=== PATIENT | male | born 1945 | race Caucasian/White ===

== ENCOUNTER 2016-12-08 06:09 | Inpatient (IN) ==
[2016-12-08] MEDS ORDERED: Dexamethasone 4 MG/ML VIAL ONE (06:19)
[2016-12-08] MEDS ORDERED: Lidocaine -MPF 4% 5 ML AMPUL ONE (06:19)
[2016-12-08] MEDS ORDERED: *HR* Succinylcholine 200 MG/10 ML VIAL IVP ONE (06:19)
[2016-12-08] MEDS ORDERED: Ondansetron 4 MG/2 ML VIAL ONE (06:19)
[2016-12-08] MEDS ORDERED: Lidocaine -MPF 2% 2 ML VIAL ONE ×2 (06:19→07:28)
[2016-12-08] MEDS ORDERED: *HR* Midazolam HCl 2 MG/2 ML VIAL ONE (06:20)
[2016-12-08] MEDS ORDERED: *HR* FentaNYL (PF) 100 MCG/2 ML VIAL ONE ×2 (06:20→08:03)
[2016-12-08] MEDS ORDERED: *HR* Propofol 200 MG/20 ML VIAL IVP ONE (06:20)
[2016-12-08] MEDS ORDERED: Vancomycin 1,750 MG in D5% in Water 500 ML IVPB ONE ×2 (06:29→19:00)
[2016-12-08] MEDS ORDERED: CeFAZolin Pre 2,000 MG/100 ML 2,000 MG/100 ML BAG IVPB ONE (06:29)
[2016-12-08] MEDS ORDERED: Lidocaine -MPF 1% 2 ML VIAL ID ONE (06:29)
[2016-12-08] MEDS ORDERED: Ringers Solution, Lactated 1,000 ML IVC SCH (06:30)
[2016-12-08] MEDS ORDERED: *HR* Phenylephrine 10 MG/ML VIAL ONE (06:31)
[2016-12-08] MEDS ORDERED: Heparin 1,000 UNITS/500 mL NS 500 ML ONE ×2 (07:04→07:21)
--- NOTE | 2016-12-08 07:17 | Anesthesia Evaluation PreOp ---
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: Other (REM sleep disorder) Other Medical History: Other (BMI 37) Anesthesia History: No Prior Anesthetic Complications, Past Anesthesia ( tonsillectomy, cardiac cath) Alcohol Use: none Drug use: none Medications and Allergies Atenolol [Tenormin] 50 mg PO BID 04/11/16 [History] amLODIPine [Norvasc] 10 mg PO DAILY #30 tablet 04/11/16 [Rx] cloNIDine HCl [CloNIDine HCl] 0.1 mg PO BID 04/11/16 [History] clonazePAM [Klonopin] 1 mg PO HS 04/11/16 [History] hydroCHLOROthiazide [Hydrochlorothiazide] 25 mg PO DAILY #30 tablet 04/11/16 [Rx ] Acetaminophen [Tylenol] 1,000 mg PO Q6HR #90 tablet 11/16/16 [Rx] Aspirin [Lo-Dose Aspirin EC] 81 mg PO DAILY 11/16/16 [History] Chromium Picolinate 1,000 mcg PO DAILY 11/16/16 [History] 3 Allergy/AdvReac Type Severity Reaction Status Date / Time cilostazol AdvReac Weakness Verified 12/08/16 06:55 lisinopril AdvReac Cough Verified 12/08/16 06:55 Hlovzhu-Rug-Lar Reductase AdvReac Joint Pain Verified 12/08/16 06:55 Inhibitor [Statins] - Meds/Allergy Pre-op Review Medications Reviewed: Yes Allergies Reviewed: Yes Beta Blockers on Current Med List: Yes (atenolol) If Beta Blockers taken, Date/Time (Last Dose taken): this AM Anesthesia Results - Labs Laboratory Tests 11/04/16 11/04/16 11/04/16 09:50 09:50 09:50 WBC 7.3 Hgb 14.6 Hct 41.9 Plt Count 240 PT 11.0 INR 1.0 APTT 34.0 Sodium 140 Potassium 3.9 Chloride 104 Carbon Dioxide 22 BUN 23 Creatinine 1.33 H Est GFR ( Amer) > 60 Est GFR (Non-Af Amer) 53 L BUN/Creatinine Ratio 17 Glucose 131 H Calculated Osmolality 295 Calcium 9.7 - Imaging EKG: report reviewed, image reviewed (SR) Additional studies: 3-2016 TTE: Impressions: LVEF 60%;No SMWMAs%. Normal left ventricular size and systolic function. There is no evidence of left ventricular thrombus. Definity was not given. There is evidence of mild diastolic dysfunction of the left ventricle. Normal left atrial size. Normal right ventricular size and function. Normal right atrial size. No significant valvular dysfunction. 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
[2016-12-08] MEDS ORDERED: Heparin 1,000 UNITS/500 mL NS 0 ML ONE (07:25)
[2016-12-08] MEDS ORDERED: Vancomycin 1,000 MG VIAL ONE (07:25)
[2016-12-08] MEDS ORDERED: Plasma-Lyte A (PH 7.4) 1,000 ML IVC SCH (07:30)
--- NOTE | 2016-12-08 07:37 | History & Physical Report ---
Date of Encounter: 12/08/16 Time of Encounter: 07:20 24 Hour HP Update - Instructions Instructions: If the History and Physical is less than 30 days old and was completed prior to A.M. admission and or procedure and has NOT been updated on calendar day of procedure please complete this update prior to performing procedure. - Update Patient reports changes in Medical Condition: No Changes in examination, assessment, or condition: No Changes in Medication: No Preop tests/diagnostics Reviewed: Yes Surgery Remains Indicated: Yes Consent for Planned Operative Procedure(s) Verified: Yes - Pre-Operative Checklist Preoperative Checklist Indicated: Yes Prophylactic Antibiotic Ordered: Yes (vancomycin due to MRSA risk) Home Medications Include Beta Hilary: Yes Beta Hilary Taken Today (Day of Surgery): Yes Beta Hilary Taken Yesterday (Day Prior to Surgery): Yes Is VTE Prophylaxis Indicated?: Yes
--- NOTE | 2016-12-08 09:07 | Anesthesia Procedures ---
Date of Encounter: 12/08/16 Time of Encounter: 07:50 Procedures: Anesthesia - Arterial Line Consent obtained: verbal consent Time out performed: Yes Sedation: Versed (mg): 2 Sedation: Fentanyl (mcg): 100 Supplemental Oxygen via Nasal Cannula (L/min): 2 Local Anesthetic: Lidocaine 1% Amount of Anesthetic used (mls): 0.5 Size (Gauge): 20 Length (inches): 1 3/4 Technique Used: sterile prep, direct puncture technique Post-Procedure: line taped into place, dry sterile dressing placed Patient tolerated procedure: well, no complications Complications: none Site: Radial L Vitals: Vital Signs/O2 Sat/Glucose, Most Recent Temp Pulse Resp BP Pulse Ox 97.6 F 63 18 133/79 96 12/08/16 06:26 12/08/16 07:44 12/08/16 07:44 12/08/16 07:44 12/08/16 07:44 Comments: naac, placed by SRNA
[2016-12-08] MEDS ORDERED: *HR* HYDROmorphone (PF) 1 MG/ML SYRINGE IVP PRN (09:08)
[2016-12-08] MEDS ORDERED: *HR* Labetalol 20 MG/4 ML SYRINGE IVP PRN (09:08)
[2016-12-08] MEDS ORDERED: Dexamethasone 4 MG/ML VIAL IVP ONE (09:08)
[2016-12-08] MEDS ORDERED: Ondansetron 4 MG/2 ML VIAL IVP ONE (09:08)
[2016-12-08] MEDS ORDERED: *HR* HYDROmorphone 2 MG/ML SYRINGE ONE (11:06)
[2016-12-08] MEDS ORDERED: *HR* Heparin 5,000 UNIT/ML VIAL ONE ×2 (11:10→11:34)
--- NOTE | 2016-12-08 13:32 | Operative Note ---
Date of procedure: 12/08/16 Pre-op diagnosis: Peripheral vascular disease with disabling claudication Post-op diagnosis: same Procedure: 1. Left iliofemoral endarterectomy with bovine pericardial patch angioplasty. 2. Left common femoral to below knee popliteal artery bypass with reversed left greater saphenous vein. Complications: None Anesthesia: GETA Surgeon: Davin Nicole Apple Thinner: Desean Wilkerson Estimated blood loss (cc): 300 Specimen: Left iliofemoral plaque, left groin lymph node Condition: stable Disposition: PACU Procedure in Detail: Indications: The patient is a 70 year old male with multiple medical comorbid conditions including hypertension and hyperlipidemia. He presented to [facility] with disabling claudication. Despite a walking regimen and Cilostazol, his symptoms progressed significantly. He was found to have left femoral, and popliteal disease including a superficial femoral artery occlusion. Procedure: The patient was identified in the preoperative area. The risks, benefits, and alternatives of the procedure were discussed. All questions were answered. The patient was taken to the operating room and placed in supine position on the operating room table. After the induction of general endotracheal anesthesia, he was cleaned and draped in normal sterile fashion. An oblique incision was made over the left groin sharply. Hemostasis was obtained with electrocautery. A large lymph node was encountered and excised. It was sent to pathology. Through a process of blunt, sharp, and electrocautery dissection, the left femoral vessels were dissected circumferentially and surrounded with vessel loops. A longitudinal incision was made on the left medial distal thigh sharply. Hemostasis was obtained with electrocautery. Through a process of blunt, sharp, and electrocautery dissection, the left above-knee popliteal artery was dissected. The vessel was noted to be heavily calcified and with multiple levels of signifcant stenosis and occlusion. I was deemed inadequate for bypass. An incision was made on the right medial calf sharply. Hemostasis was obtained with electrocautery. Through a process of blunt, sharp, and electrocautery dissection, the left below -knee popliteal artery was dissected proximally and distally and surrounded with vessel loops. Multiple skin incisions were made along the thigh between the two incisions over the saphenous vein. The saphenous vein was completely mobilized with blunt , sharp, and electrocautery dissection. The tributaries were clamped, divided, tied off with 3-0 and 4-0 silk sutures. Distally, the vein was mobilized in the calf, clamped, divided, tied off with silk suture ligature and then further completely mobilized through the incisions. The vein was flushed and noted to be adequate in size and consistency for bypass. A tunnel was created between the femoral and popliteal artery incisions. The vein was reversed. Tension was applied to the femoral vessel loops. An arteriotomy was made in the left common femoral artery. Extensive stenotic plaque was noted in the common and external iliac arteries. Dissection was performed more proximally and the exteral iliac artery was clamped. A dental freer was then used to perform an endartectomy on the left external iliac and common femoral arteries. Proximal and distal endpoints were inspected and no elevated flaps were noted. Due to the length of the arteriotomy, a bovine pericaridal patch was cut to fit the arteriotomy and sutured in place with a running 6-0 prolene. A longitudinal incision was then made in the middle of the patch. The reversed vein graft was cut to fit the defect. The graft was anastamosed with a running 6-0 Prolene. After completing the closure, the vessels were reperfused and pulsatile flow was noted through the vein. The vein was marked without torsion and then it was tunneled between the two incisions. After tunneling, the vein was unclamped and was noted to have strong pulsatile flow once again. It was re-clamped. The popliteal vessels were occluded and a longitudinal arteriotomy was made in the popliteal artery. The distal end of the graft was sutured in place with a running 6-0 Prolene,. The distal arterial anastomosis was completed and prior to completing the closure, the popliteal vessels were flushed and reoccluded. Heparinized saline was infused into the lumen. The anastamosis was tied and then flow was restored. Polyphasic signals were noted distal to the distal anastomosis as well as at the posterior tibial artery. Wounds were irrigated with antibiotic-containing saline. Thrombin and gelfoam were used to aid in hemostasis. Platelet rich and platelet poor plasma were infused into the wounds. Meticulous hemostasis was obtained throughout the wound with electrocautery. Wounds were reapproximated with layers of 2-0 and 3-0 Vicryl. Skin was reapproximated with 3-0 Monocryl. Sterile dressing was applied. The patient was extubated and taken to recovery room in stable condition.
[2016-12-08] MEDS ORDERED: *HR* Morphine 2 MG/ML SYRINGE IVP PRN (14:30)
[2016-12-08] MEDS ORDERED: Naloxone 0.4 MG/ML INJ IVP PRN (14:30)
[2016-12-08] MEDS ORDERED: Acetaminophen 325 MG TABLET PO PRN (14:30)
[2016-12-08] MEDS ORDERED: *HR* HYDROcodone/Acet 5/325 mg TABLET PO PRN (14:30)
[2016-12-08] MEDS ORDERED: Ondansetron 4 MG/2 ML VIAL IVP PRN (14:30)
--- NOTE | 2016-12-08 14:41 | Anesthesia Evaluation Post Op ---
Date of Encounter: 12/08/16 Time of Encounter: 14:40 - Vital Signs Vital Signs: Last Vital Signs Temp 97.6 F 12/08/16 14:29 Pulse 76 12/08/16 14:29 Resp 18 12/08/16 14:29 BP 128/73 12/08/16 14:29 Pulse Ox 96 12/08/16 14:29 - Lungs Lungs: Clear Ascult./Percussion - Airway Airway: Non-obstructed - Cardiovascular Regular Rate - Mental Status Mental Status: Alert & Oriented, Answers Appropriately - Pain Pain Scale: 3 - Nausea Vomiting Nausea Vomiting: Not Present - Hydration Hydration: Ice chips - Discharge PostOp Status: Transfer Patient to floor
[2016-12-08] MEDS: ceFAZolin 3,000 MG in D5% in Water 100 ML IVPB SCH ×2 (15:11→23:57)
--- NOTE | 2016-12-08 16:46 | Discharge Summary ---
<Davin Nicole - Last Filed: 12/08/16 16:43> Date of Encounter: 12/08/16 - Discharge Medications Prescriptions: Oxycodone HCl/Acetaminophen [Percocet 5-325 mg Tablet] 1 each PO Q6H PRN #25 tablet PRN Reason: POSTOPERATIVE PAIN Home Medications: Atenolol [Tenormin] 50 mg PO BID 04/11/16 [History] clonazePAM [Klonopin] 1 mg PO HS 04/11/16 [History] hydroCHLOROthiazide [Hydrochlorothiazide] 25 mg PO DAILY #30 tablet 04/11/16 [Rx ] Aspirin [Lo-Dose Aspirin EC] 81 mg PO DAILY 11/16/16 [History] Chromium Picolinate 1,000 mcg PO DAILY 11/16/16 [History] Amlodipine Besylate 10 mg PO DAILY 12/08/16 [History] Cholecalciferol (D-3) [Vitamin D] 1,000 unit PO DAILY 12/08/16 [History] Magnesium Oxide [Magnesium] 250 mg PO DAILY 12/08/16 [History] Oxycodone HCl/Acetaminophen [Percocet 5-325 mg Tablet] 1 each PO Q6H PRN #25 tablet 12/08/16 [Rx] Turmeric Root Extract [Turmeric] 500 mg PO DAILY 12/08/16 [History] Vitamin E Acid Succinate [Vitamin E] 400 units PO DAILY 12/08/16 [History] Allergies/Adverse Reactions: 3 Allergy/AdvReac Type Severity Reaction Status Date / Time cilostazol AdvReac Weakness Verified 12/08/16 06:55 lisinopril AdvReac Cough Verified 12/08/16 06:55 Ogkfxjw-Cmh-Jfs Reductase AdvReac Joint Pain Verified 12/08/16 06:55 Inhibitor [Statins] Date of admission: 12/08/16 13:50 Primary care physician: Elena Holliday, - Patient Status Disposition: Home, Self-Care Condition: Good - Discharge Instructions Follow Up With: Elena Holliday CNP [Primary Care Provider] - (This is a Walkin Clinic only , they do not make follow up appointments. Please go see your family Doctor in 5-7 days) Davin Nicole MD [Partnered Physician] - 01/18/17 1:00 pm - Hospital Course Hospital course: Mr. Mcginnis is a 70 year old male - Time Spent with Patient Total time spent providing and/or coordinating discharge services: Exam Vital Signs, Last 4 Hours Temp Pulse Resp BP Pulse Ox 12/08/16 16:09 76 126/82 12/08/16 14:48 75 129/76 94 12/08/16 14:30 75 128/73 95 12/08/16 14:29 97.6 F 76 18 128/73 96 12/08/16 14:22 79 137/72 97 12/08/16 14:12 97.2 F L 79 16 140/82 94 12/08/16 14:02 97.1 F L 80 18 141/81 98 12/08/16 13:52 74 16 134/81 93 12/08/16 13:42 70 73 118/69 94 12/08/16 13:32 97.0 F L 72 14 136/76 97 - VTE Documentation of Mechanical Device: Intermittent pneumatic compression device <Desean Wilkerson - Last Filed: 12/09/16 14:03> Date of Encounter: 12/09/16 Time of Encounter: 14:00 - Discharge Diagnosis (1) PAD (peripheral artery disease) Priority: Primary Status: Acute Comments: Lifestyle limiting claudication of left lower extremity. Patient underwent successful reconstruction of left lower extremity with vein bypass grafting. Date of admission: 12/08/16 13:50 Primary care physician: Elena Holliday, Consults: None Procedure(s) Performed: Left femoral to below the knee popliteal artery bypass graft with reverse greater saphenous vein and left iliofemoral endarterectomy. Discharging clinician: Desean Wilkerson Anticipated date of discharge: 12/09/16 - Patient Status Functional capacity at discharge: independent ambulation Overall status at discharge: patient is progressing back to baseline - Diet and Activity Activity: increase activity as tolerated Diet: advance to your usual diet - Hospital Course Hospital course: Mr. Mcginnis is a 70 year old male With lifestyle limiting claudication. He underwent left lower summary bypass grafting yesterday. Patient has a warm left foot. He has excellent Doppler signals at the foot and ankle. There is mild edema. He is ambulating the hallways without difficulty. - Time Spent with Patient Total time spent providing and/or coordinating discharge services: Exam Vital Signs, Last 4 Hours Temp Pulse Resp Pulse Ox 12/09/16 11:55 66 12/09/16 11:33 98.3 F 70 16 99 General: Present: Conversant HEENT: Present: Atraumatic Abdomen: Present: Soft Vascular: Present: Normal capillary refill, Surgical incisions (Surgical dressings are dry and intact.)
--- NOTE | 2016-12-08 18:03 | Operative Note ---
Date of procedure: 12/08/16 Pre-op diagnosis: PAD with disabling claudication Post-op diagnosis: same Procedure: Left common femoral to [id number] popliteal artery bypass graft with reverse greater saphenous vein Left ileal femoral endarterectomy with bovine pericardial patch angioplasty Complications: None Anesthesia: GETA Surgeon: Davin Nicole Co-Surgeon: Desean Wilkerson Estimated blood loss (cc): 300 Specimen: Left iliofemoral atherosclerotic plaque Condition: stable Disposition: PACU Procedure in Detail: History Mr. Mcginnis is a 70-year-old white male with a history of peripheral vascular occlusive disease. This has been a progressive process for the patient now has disabling claudication of the left lower extremity. He now comes to the operating room and attempt to revascularize the left lower extremity. Procedure After informed consent was obtained the patient was taken to the operating room. General endotracheal anesthesia was established. Left lower extremity was sterilely prepped and draped. A timeout protocol was observed. A 2 surgeon approach was utilized for this procedure due to the patient's comorbid conditions and the need to decrease operative time and blood loss. Also it would facilitate intraoperative decision making. Dissections were then made at the common femoral artery and at the below-the- knee popliteal artery. Dissection was made to reveal the arteries at these locations. It should be noted that the initial dissection was at the above-the- knee popliteal artery for the runoff vessel but this vessel was found to be markedly calcified and was rejected as an appropriate outflow vessel for the bypass. Once the arterial anatomy was dissected and controlled dissection was then made of the greater saphenous vein. This was harvested by using interrupted incisions along the medial aspect of the thigh. The vein was removed and found to be adequate in size and caliber for bypass grafting. A subsartorial tunnel was then created and then the patient was given a dose of heparin intravenously. After 3 minute delay the iliofemoral vessels were clamped. An arteriotomy was made. A very thick and dense calcified plaque was encountered at the common femoral artery. This was obstructive to the point that it needed endarterectomy. Therefore a formal endarterectomy was performed in order to open this vessel and to provide a necessary area that would be suitable for the origin of the bypass graft. After the endarterectomy was performed a bovine patch angioplasty was sewn into position over the endarterectomized common femoral artery. Then an arteriotomy was made over the patch in the proximal anastomosis was created. As was an end to side configuration. After this was performed pulsatile blood flow was then achieved into the graft. The graft was checked for any signs of bleeding and marked for correct orientation. It was then passed through the tunnel and into the area of the bulb of the [id number] popliteal artery. An arteriotomy was made on the anterior surface of the [id number] popliteal artery. This vessel was soft. There is no thrombus or atherosclerosis present. An end of vein to side of artery anastomosis was created using 6-0 Prolene suture. After appropriate backbleeding and flushing the graft was opened. Pulsatile flow was then established into the left calf. Doppler signals were identified over the posterior tibial and peroneal artery at the ankle. All the incisions were then irrigated and hemostasis achieved. The wounds were closed in layers using absorbable suture. There were no intraoperative complications. The patient tolerated the procedure well. The patient was taken from the operating room to the recovery room in stable condition.
[2016-12-08] MEDS ORDERED: clonazePAM 1 MG TABLET PO SCH (21:00)
[2016-12-09 03:51] LABS: Basophils % 0.4 %; Eosinophils # 0.1 K/mcL (0.0-0.6); Eosinophils % 0.6 %; Hematocrit 37.7 % (37.5-50.1); Hemoglobin 12.7 g/dL (12.9-16.9); Immature Granulocytes % 0.5 % (0-4); Lymphocytes # 1.9 K/mcL (0.6-4.6); Lymphocytes % 17.8 %; Mean Corpuscular HGB Conc 33.7 g/dL (31.6-35.5); Mean Corpuscular Hemoglobin 29.5 pg (28.0-33.3); Mean Corpuscular Volume 87.5 fL (83.0-100.0); Monocytes # 0.9 K/mcL (0.0-1.3); Monocytes % 8.5 %; Neutrophils # 7.7 K/mcL (1.6-8.9); Platelet Count 205 K/mcL (140-400); Red Blood Count 4.31 M/mcL (4.19-5.50); Red Cell Distribution Width 13.2 % (11.5-14.5); Segmented Neutrophils % 72.2 %
[2016-12-09 04:01] LABS: BUN/Creatinine Ratio 12 (6-26); Blood Urea Nitrogen 15 mg/dL (8-26); Calcium 9.1 mg/dL (8.6-10.8); Carbon Dioxide 26 mEq/L (19-29); Chloride 101 mEq/L (98-109); Glucose 112 mg/dL (70-99); Osmolality,Calculated 284 (280-300); Potassium 3.7 mEq/L (3.5-4.5); Sodium 136 mEq/L (136-145); eGFR For African Americans > 60 (> 60); eGFR For Non-African Americans 57 (> 60)
[2016-12-09] MEDS ORDERED: *HR* Heparin 5,000 UNIT/ML VIAL SQ SCH ×2 (06:00)
[2016-12-09] MEDS: *HR* OxyCODONE Immed Rel 5 MG TABLET PO PRN ×2 (06:11→12:06)
[2016-12-09 07:13] VITALS: BP 135/80
[2016-12-09] MEDS ORDERED: Aspirin Enteric Coated 81 MG Tablet PO SCH (09:00)
[2016-12-09] MEDS ORDERED: hydroCHLOROthiazide 25 MG TABLET PO SCH (09:00)
[2016-12-09] MEDS ORDERED: CHROMIUM PICOLINATE 1000 MCG PO SCH (09:00)
[2016-12-09] MEDS ORDERED: MAGNESIUM OXIDE 250 MG PO SCH (09:00)
[2016-12-09] MEDS ORDERED: amLODIPine 5 MG TABLET PO SCH (09:00)
[2016-12-09] MEDS ORDERED: Cholecalciferol (D-3) 1,000 UNIT TABLET PO SCH (09:00)
[2016-12-09] MEDS: *HR* Metoprolol 5 MG/5 ML VIAL IVP SCH ×2 (09:20→12:06)
== END 2016-12-09 16:18 | disposition home or self-care (01) | DRG 272 ==
LOC: SAMDAY 06:09 → 2NNU 13:50
PROVIDERS: ADMIT Surgery; ATTEND Surgery